=== PATIENT | female | born 2000 | race Two or more races ===

== ENCOUNTER 2024-05-18 07:52 | Outpatient (RCR) | payer MEDICAID, SELFPAY ==
--- NOTE | 2024-05-15 08:56 | XR_ITS ---
Examination: Biophysical profile, ultrasound Date and time of exam: May 15, 2024 0900 hours INDICATIONS: Diagnosis intrauterine growth retardation Technique: Multiple transabdominal sonographic images of the pelvis abdomen obtained. Attention is directed to the breathing movement, gross body movement, amniotic fluid volume and tone. Findings: Amniotic fluid index 12.2 cm Total biophysical profile is 8 of 8. breathing movement is 2. Gross body movement is 2. tone is 2. Qualitative amniotic fluid volume is 2 Impression: Biophysical profile is 8 of 8.
[2024-05-15 09:28] VITALS: BP 118/78; PULSE 83; RESP 18; TEMP 36.7
--- NOTE | 2024-05-18 08:27 | XR_ITS ---
Examination: Biophysical profile, ultrasound Date and time of exam: May 18, 2024 0834 hours INDICATIONS: Diagnosis intrauterine growth retardation, pelvic pressure beginning 3 days ago Technique: Multiple transabdominal sonographic images of the pelvis abdomen obtained. Attention is directed to the breathing movement, gross body movement, amniotic fluid volume and tone. Findings: Amniotic fluid index 13.8 cm Total biophysical profile is 8 of 8. breathing movement is 2. Gross body movement is 2. tone is 2. Qualitative amniotic fluid volume is 2 Impression: Biophysical profile is 8 of 8.
[2024-05-18 09:40] VITALS: BP 115/78; PULSE 81; RESP 16; TEMP 37
== END 2024-05-18 23:59 | disposition home or self-care (01) ==
LOC: S4S1 07:52
PROVIDERS: Referring Provider Advanced Practice Midwife; Visit Provider Advanced Practice Midwife
DX: O26.843 Uterine size-date discrepancy, third trimester (principal); O09.93 Supervision of high risk pregnancy, unspecified, third trimester; O36.5930 Maternal care for other known or suspected poor fetal growth, third trimester, not applicable or unspecified; Z3A.38 38 weeks gestation of pregnancy
CPT/HCPCS: 59025; 76819

== ENCOUNTER 2024-05-21 08:59 | Inpatient (IN) | payer MEDICAID, SELFPAY ==
[2024-05-21] VITALS (27 sets, daily range): BP systolic 90–132; BP diastolic 51–91; PULSE 67–90; RESP 15–17; TEMP 36.5–37; BMI 23.7
[2024-05-21 10:34] LABS: Amphetamine/Metham Scrn,Ur OB Negative (Negative); Benzoylecgonine Screen, Ur OB Negative (Negative); Opiate Screen,Urine OB Negative (Negative); THC Screen,Urine OB Negative (Negative)
--- NOTE | 2024-05-21 10:36 | XR_ITS ---
Examination: Complete OB ultrasound greater than 14 weeks Date and time of exam: May 21, 2024 1110 hrs. Indications: Preop labor induction, unknown presentation, diagnosis intrauterine growth retardation, history pelvic pressure beginning May 17, 2024 Findings: Viable intrauterine single fetus with single amniotic sac presentation cephalic Cardiac motion 143 BPM Placenta anterior grade 3 Clinical: Insertion 3 vessel seen Amniotic fluid index 12.3 cm spine maternal right Cervix 2.9 cm Right ovary 2.9 x 2.9 x 1.7 cm arterial flow Left ovary obscured by bowel gas. Composite estimated gestational age based on BPD, head circumference, abdominal circumference, femur length is 37 weeks 0 days Estimated weight 3107 g. Survey of intracranial anatomy, spinal anatomy, abdominal anatomy, four-chamber heart performed with no abnormalities identified. Impression: Viable intrauterine gestation cephalic presentation Estimated gestational age 37 weeks 0 days Estimated weight 3107 g.
[2024-05-21 10:37] LABS: Basophils % (Auto) 0 % (0-2.5); Eosinophils # (Auto) 0.1 Thou/mm3 (0.0-0.5); Eosinophils % (Auto) 1 % (0-10); Hematocrit 31.4 % (36.0-46.0); Hemoglobin 10.3 g/dL (12.0-16.0); Immature Granulocytes % (Auto) 0 % (0-0); Immature Granulocytes Auto 0.03 Thou/mm3 (0.00-0.00); Lymphocytes % (Auto) 26 % (10-50); Mean Corpuscular HGB Conc 32.8 g/dl (31.0-37.0); Mean Corpuscular Hemoglobin 27.6 pg (25.0-35.0); Mean Corpuscular Volume 84 fL (80-100); Monocytes # (Auto) 0.6 Thou/mm3 (0.0-0.8); Monocytes % (Auto) 8 % (0-12); Neutrophils # (Auto) 5.1 Thou/mm3 (1.8-7.7); Neutrophils % (Auto) 65 % (37-80); Nucleated Red Blood Cell % 0 /100 WBC (0); Platelet Count 147 Thou/mm3 (140-440); RDW Standard Deviation 42.8 fL (36.4-46.3); Red Blood Count 3.73 Miln/mm3 (4.00-5.20); White Blood Count 7.9 Thou/mm3 (3.6-11.0)
[2024-05-21 11:07] LABS: Syphilis Nonreactive (Nonreactive)
[2024-05-21] MEDS: MISOPROSTOL 50 mCg TABLET PO ×3 (13:24→22:46)
--- NOTE | 2024-05-21 14:08 | PD.LDHP ---
Documentation for date of: 05/21/24 OB Labor/Induct. HPI History of Present Illness : 1 History of present illness: 23 yo at 39+2 presents for scheduled IOL for FGR c/b 1) FGR 9%ile (normal UA dopplers?) 2) Anemia in No acute issues. No contractions or LOF. History of Present Adequate Care: No Labs Narrative: Rh postivie HEp bsAg negative GBS negative RPR NR HIV neg GC/CT negative Review of Systems Review of Systems Narrative Review of Systems: NEg except noted above Meds Home Medications and Allergies Allergies Allergy/AdvReac Type Severity Reaction Status Date / Time No Known Allergies Allergy Verified 05/21/24 09:47 OB Exam Physical Exam Vital signs: Temp Pulse Resp BP 98.2 F 77 17 119/78 05/21/24 12:56 05/21/24 13:38 05/21/24 12:56 05/21/24 13:38 Narrative: GEN: NAD RESP normal work of breathing ABD: gravid, non tender SVE: c/l/h OB Results Labs 05/21/24 09:45 Labs: Short CBC 05/21/24 Range/Units 09:45 WBC 7.9 (3.6-11.0) Thou/mm3 Hgb 10.3 L (12.0-16.0) g/dL Hct 31.4 L (36.0-46.0) % Plt Count 147 (140-440) Thou/mm3 OB Assessment & Plan Assessment and Plan (1) growth restriction: Status: Acute (2) Anemia affecting : Status: Acute (3) Supervision of normal : Status: Acute Additional Plan Additional Plan Comment: #IOL for FGR: - continous monitoring - cervical ripening - GBS negative # FWB: EFW 3107 g (9%ile), continous monitoring # anemia in : iron supplementation PPH risk low Anticipate
[2024-05-21] MEDS: RINGERS LACTATED 1000 ML 1,000 ML 100 ML IV (17:55)
[2024-05-22] VITALS (40 sets, daily range): BP systolic 101–148; BP diastolic 59–89; PULSE 65–127; RESP 15–17; TEMP 36.7–37.1; O2SAT 85–100
[2024-05-22] MEDS: MISOPROSTOL 50 mCg TABLET PO ×2 (02:58→13:57)
[2024-05-22] MEDS: OXYTOCIN in NS 30 units 30 UNIT/500 ML BAG IV (19:18)
[2024-05-22] MEDS: fentaNYL CIT INJ 50 mCg/ML AMP 2ML 100 MCG IV ×2 (20:34→22:46)
[2024-05-22] MEDS: RINGERS LACTATED 1000 ML 1,000 ML 100 ML IV (20:51)
[2024-05-23] VITALS (89 sets, daily range): BP systolic 101–148; BP diastolic 55–94; PULSE 74–144; RESP 15–20; TEMP 36.4–37; O2SAT 83–100
[2024-05-23] MEDS: MISOPROSTOL 200 mCg TABLET 800 MCG PR (03:13)
[2024-05-23] MEDS: MINERAL OIL 30 ML UDC TOP (03:13)
[2024-05-23] MEDS: METHYLERGONOVINE INJ 0.2 MG/ML VIAL IM (03:28)
[2024-05-23] MEDS: TRANEXAMIC ACID 1,000 MG IVPB 1,000 MG/100 ML BAG 200 MG IV (03:46)
--- NOTE | 2024-05-23 03:51 | PD.LDDELS ---
Data (Rich) Data : 1 Para: 0 Term: 0 : 0 : 0 Delivery Data (Rich) Labor Data Stimulated/Augmented: Yes Induction: Yes Method: Cytotec ROM Date: 05/22/24 ROM Time: 08:15 Rupture Type: SROM Amniotic Fluid: Clear Delivery Data Labor Onset Stage 1 Date: 05/23/24 Labor Onset Stage 1 Time: 00:15 Labor Onset Stage 2 Date: 05/23/24 Labor Onset Stage 2 Time: 00:15 Delivery Date: 05/23/24 Delivery Time: 03:07 Placenta Delivery Date: 05/23/24 Placenta Delivery Time: 03:17 Delivered by: Carla Garcia Delivery nurse: Mendez Mcgee Other staff at delivery: Nursery Nurse Other staff at delivery: Arminda Martinez Delivery Method Delivery: Vaginal Delivery Type: Spontaneous Presentation: Vertex (posterior arm) Position: OA Anesthesia Type Primary Anesthesia: Epidural Delivery Room Medications Intrapartum Medications: Narcotics and Tocolytics Other Intrapartum Medications: No Post Delivery Medications: Tocolytics, Cytotec and Ergotrate Post Delivery Medications N/A: No Placenta Placenta Delivery: Spontaneous (inspected, intacted) Placenta Cultures Obtained: No Placenta Sent for Examination: No Cord Sample: Cord Blood Obtained Episiotomy Episiotomy: None Lacerations #1: Vaginal: 1st degree (on vag floor and R side, 3 stitch each, small PU) Perineal repair Sutures used for repair: 3.0 Chromic EBL Estimated blood loss (ml): 400 Umbilical Cord Umbilical Vessels: 3 Body Cord: x1 (feet) Data (Rich) Data Infant Gender: Female Infant Weight Grams: 2575 1 Minute Total: 9 5 Minute Total: 9
[2024-05-23] MEDS: OXYTOCIN in NS 20 units 20 UNIT/1,000 ML BAG 125 UNIT IV (03:59)
[2024-05-23] MEDS: BENZO/LANO/ALOE (Dermoplast) 60 GM CAN 1 SPRAY TOP (04:01)
[2024-05-23] MEDS: IBUPROFEN TAB 400 MG TABLET 800 MG PO (04:01)
[2024-05-23 12:16] LABS: Basophils % (Auto) 0 % (0-2.5); Eosinophils % (Auto) 0 % (0-10); Hematocrit 26.8 % (36.0-46.0); Immature Granulocytes % (Auto) 1 % (0-0); Immature Granulocytes Auto 0.11 Thou/mm3 (0.00-0.00); Lymphocytes # (Auto) 2.2 Thou/mm3 (1.0-4.8); Lymphocytes % (Auto) 13 % (10-50); Mean Corpuscular HGB Conc 32.5 g/dl (31.0-37.0); Mean Corpuscular Hemoglobin 27.3 pg (25.0-35.0); Mean Corpuscular Volume 84 fL (80-100); Monocytes # (Auto) 1.2 Thou/mm3 (0.0-0.8); Monocytes % (Auto) 7 % (0-12); Neutrophils # (Auto) 13.8 Thou/mm3 (1.8-7.7); Neutrophils % (Auto) 80 % (37-80); Nucleated Red Blood Cell % 0 /100 WBC (0); Platelet Count 136 Thou/mm3 (140-440); RDW Standard Deviation 43.1 fL (36.4-46.3); Red Blood Count 3.19 Miln/mm3 (4.00-5.20); White Blood Count 17.3 Thou/mm3 (3.6-11.0)
[2024-05-23 12:20] LABS: Hemoglobin 8.7 g/dL (12.0-16.0)
[2024-05-23] MEDS: ACETAMINOPHEN 325 MG TABLET 650 MG PO (23:28)
--- NOTE | 2024-05-24 08:34 | ESDS_ITS ---
DS: Providers Provider Date of admission: 05/21/24 08:59 Primary care physician: Physician No Primary/Family Admitting Provider: Melita Iraheta MD Attending Provider on Admission: Aida Frazier MD Consults: 05/23/24 05:30 Referral Routine Comment: Attending Provider on DC: Kim Phan MD Discharging Provider: Kim Phan MD DS: Diagnosis Discharge Diagnosis (1) Anemia affecting : Status: Acute (2) growth restriction: Status: Acute Problem List Completed Was Problem List Reviewed/Reconciled?: Yes Summary/Hosp Course Brief History: 23 yo at 39+2 presents for scheduled IOL for FGR c/b 1) FGR 9%ile (normal UA dopplers?) 2) Anemia in Patient had uncomplicated IOL and spontaneous vaginal delivery with normal course. On day 1 she desires discharge home and is meeting all milestones. Vitals wnl, benign exam. Hemodynamically stable with no evidence of infection. Hgb now 8.7 from 10.3, Rx for iron sent and discussed with patient how to take. Peripartum Data Delivery Method: Normal Vaginal Delivery Episiotomy Description: None Laceration Description: yes complications: perineal laceration Status at Discharge Functional status at discharge: independent ambulation Overall status at discharge: patient is back to baseline Time Spent with Patient Time attestation: Total time spent providing and/or coordinating discharge services: Time spent: Less than 30 minutes Exam Vital Signs Temp Pulse Resp BP Pulse Ox O2 Del Method 98.3 F 85 18 102/64 99 Room Air 05/23/24 23:25 05/23/24 23:25 05/23/24 23:25 05/23/24 23:25 05/23/24 23:25 05/23/24 23:25 Narrative Exam General: well developed, well nourished, no acute distress, conversant Cardiac: normal heart rate Lungs: breathing without distress Abdomen: soft, post-gravid, non-tender, no rebound or guarding Extremities: no pain with palpation of calves Discharge Plan Plan Patient Disposition: HOME (Self Care) Patient condition on transfer: Stable Prescriptions/Referrals Prescriptions/Med Rec: New ibuprofen 400 mg Tablet 800 mg PO Q8H PRN (Reason: See Comments) 10 Days Qty: 30 0RF docusate sodium [Colace] 100 mg capsule 100 mg PO BID Qty: 30 0RF ferrous sulfate 325 mg (65 mg iron) tablet 325 mg PO QDAY Qty: 90 0RF Referrals: No Primary/Family,Physician [Primary Care Provider] - Patient/Caregiver Discharge Instructions Discharge Activity: activity as tolerated and other Other Discharge Activity Instructions:: Vaginal rest and no heavy lifting for 6 weeks Other Discharge Diet Instructions: regular diet Education Materials: After a Vaginal , Anemia During Print Language: Latvian Stand Alone Forms: Rere Award Info., Patient Portal Info Letter Discharge Order Discharge Orders: Discharge (Routine); Ordered 05/24/24 Ordered By: Kim Phan Planned Discharge Date 05/24/24 (1) Anemia affecting Qualifiers: Trimester: unspecified trimester Qualified Code(s): O99.019 - Anemia complicating , unspecified trimester
[2024-05-24 09:00] VITALS: BP 111/72; PULSE 83; RESP 17; TEMP 36.8; O2SAT 98
--- NOTE | 2024-05-24 14:26 | PC.SS ---
Patient is Pashto speaking only. Interpreting line utilized. Patient agreeable to speaking in front of father of the baby. FOB is Jc Castellanos. LEGISLATIVE ANALYST and SS discussed referral for late to care. Patient was late to care at 29 weeks. Patient states she received care in [place] where she was residing at the time. Baby born naturally. This is patient?s first child. Patient had a baby girl. No hx: mental illness, drug/alcohol history, domestic violence, nor CWS involvement. Patient verbalized he has WIC but does not have food stamps or gamez aid. Patient expressed she would like information on how to apply for the two. Resources provided. Patient has an OB physician she sees, senior brand manager, Carla Garcia RN. Patient has found a groundskeeping yardman for baby. Patient has all resources for car seat, baby clothing. She has positive family support. FOB involved and resides with patient. He will be providing transportation home. SS provided resources to include SNAP/TANF information. SS updated nursing staff. Possible d/c home today.
== END 2024-05-24 13:18 | disposition home or self-care (01) | DRG 560 ==
LOC: S4SX 05-22 22:38 → S4NX 05-23 05:06
PROVIDERS: Advanced Practice Midwife; Admitting Provider Obstetrics & Gynecology; Visit Provider Student in an Organized Health Care Education/Training Program
DX: O36.5930 Maternal care for other known or suspected poor fetal growth, third trimester, not applicable or unspecified (principal); Z37.0 Single live birth; Z3A.39 39 weeks gestation of pregnancy; O69.82X0 Labor and delivery complicated by other cord entanglement, without compression, not applicable or unspecified; O99.02 Anemia complicating childbirth; O70.0 First degree perineal laceration during delivery
CPT/HCPCS: 36415; 59409; 76805; 80307; 85025; 86780; 86850; 86900; 86901; 94762; J2210; J2590; J2795; J3010; J3490; J7120; S0191; A9270

== ENCOUNTER 2024-10-20 17:31 | Inpatient (IN) | payer MEDICAID, SELFPAY ==
[2024-10-20 17:58] VITALS: BP 104/65; PULSE 112; RESP 18; TEMP 37.3; O2SAT 97; BMI 22.9
--- NOTE | 2024-10-20 18:16 | XR_ITS ---
Examination: CT abdomen and pelvis without contrast. Coronal 3-D reconstructions. Sagittal 2-D reconstructions. Date and time of exam:October 21, 2024 0012 hours INDICATIONS: Right lower abdominal pain today CTDI: vol (mGy): 24 DLP: (mGycm): 235 Technique: Axial images of the abdomen have been obtained, 3 mm slice thickness Intravenous contrast material has not been administered. Low dose protocols were performed. One or more of the following dose reduction techniques were used; automated exposure control, adjustment of the mA and/or KV according to patient size, use of iterative reconstruction technique. Findings: No focal liver or splenic lesions No gallstones No pancreatic or adrenal mass No renal or ureteral calculi, no hydronephrosis Retroverted uterus There appears to be a thickened tubular structure medial to the cecum coronal image 56 but there is no pericecal inflammatory change and there is no clear-cut periappendiceal inflammatory change Minimal urinary bladder wall thickening Orthopedic plate right in the pelvis and old healed right hip fracture IMPRESSION: Recommend repeating this study with contrast to exclude acute appendicitis
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
[2024-10-20 19:01] LABS: Collection Type, Urine Clean Catch
[2024-10-20 19:09] LABS: HCG Qualitative,Urine Negative
[2024-10-20 19:11] LABS: Bilirubin,Urine Negative (Negative); Blood,Urine Negative (Negative); Clarity,Urine Turbid (Clear/Hazy); Color,Urine Yellow (Lt Yel-Yel); Culture Indicated,Urine Not Indicated; Glucose, Urine Negative (Negative); Ketones,Urine Negative (Negative); Leukocyte Esterase,Urine Negative (Negative); Nitrite,Urine Negative (Negative); PH,Urine 5.5 (5.0-7.0); Protein,Urine Trace (Neg - Trace); RBC,Urine 5 /hpf (0-3); Specific Gravity,Urine 1.025 (1.001-1.035); Squamous Epithelial Cell,Urine 5 /hpf (0-5); Urobilinogen,Urine Negative mg/dL (0.0-1.0); WBC,Urine 2 /hpf (0-5)
[2024-10-20 19:12] LABS: Amorphous Crystals,Urine Present (Absent); Bacteria,Urine Rare
--- NOTE | 2024-10-20 21:00 | PC.NURSE ---
attempted iv 3x no success
[2024-10-20 21:08] LABS: Basophils % (Auto) 0 % (0-2.5); Eosinophils % (Auto) 0 % (0-10); Hematocrit 37.7 % (36.0-46.0); Immature Granulocytes % (Auto) 0 % (0-0); Immature Granulocytes Auto 0.06 Thou/mm3 (0.00-0.00); Lymphocytes # (Auto) 1.3 Thou/mm3 (1.0-4.8); Lymphocytes % (Auto) 8 % (10-50); Mean Corpuscular HGB Conc 34.5 g/dl (31.0-37.0); Mean Corpuscular Volume 87 fL (80-100); Monocytes # (Auto) 0.9 Thou/mm3 (0.0-0.8); Monocytes % (Auto) 5 % (0-12); Neutrophils # (Auto) 14.7 Thou/mm3 (1.8-7.7); Neutrophils % (Auto) 86 % (37-80); Nucleated Red Blood Cell % 0 /100 WBC (0); Platelet Count 199 Thou/mm3 (140-440); RDW Standard Deviation 54.3 fL (36.4-46.3); Red Blood Count 4.34 Miln/mm3 (4.00-5.20)
[2024-10-20 21:41] LABS: Alanine Aminotransferase 21 U/L (10-49); Albumin/Globulin Ratio 1.6 (1.2-2.2); Alkaline Phosphatase 236 U/L (46-116); Anion Gap 13 (7-16); Aspartate Amino Transferase 25 U/L (0-34); BUN/Creatinine Ratio 13 Ratio (12-20); Bilirubin,Total 1.1 mg/dL (0.3-1.2); Blood Urea Nitrogen 8 mg/dL (9-23); Carbon Dioxide 19.8 mMol/L (20.0-31.0); Chloride 103 mMol/L (98-107); Creatinine (Component) 0.6 mg/dL (0.6-1.3); Estimated Creatinine Clearance 137.7 mL/min (>60); Globulin 3.1 gm/dL (2.3-3.5); Glucose 109 mg/dL (74-106); Osmolality,Calculated 271 (275-295); Potassium 3.9 mMol/L (3.4-5.1); Sodium 136 mMol/L (136-145); Total Protein 8.1 gm/dL (5.7-8.2); eGFR > 60 See Note
[2024-10-20 22:23] LABS: Partial Thromboplastin Time 29.3 Seconds (22.0-36.0)
--- NOTE | 2024-10-20 23:05 | PC.NURSE ---
attempt iv access x3 unable to get at this time
[2024-10-20 23:13] VITALS: BP 122/82; PULSE 91; RESP 16; TEMP 36.9; O2SAT 100
[2024-10-20 23:14] VITALS: PULSE 84
[2024-10-21] VITALS (11 sets, daily range): BP systolic 94–121; BP diastolic 53–74; PULSE 67–91; RESP 15–99; TEMP 36.2–37.2; O2SAT 98–100
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
--- NOTE | 2024-10-21 00:32 | PC.NURSE ---
unable to obtain iv access provider made aware, multiple staff attempted.
[2024-10-21] MEDS: RINGERS LACTATED 1000 ML 1,000 ML 999 ML IV ×2 (01:54→05:45)
--- NOTE | 2024-10-21 02:02 | PRELIM_ITS ---
CT scan of the abdomen and pelvis without intravenous contrast (axial sections with sagittal and coronal reformats) October 21, 2024 at 0012 hours Clinical History: Right lower quadrant pain Comparison: No prior study is available for comparison. Findings: The evaluation is limited due to the absence of intravenous contrast. The appendix is thickened, measuring 1 cm (coronal images 50-58/134) with periappendiceal fat stranding. There is no free fluid or free air. No evidence of bowel obstruction. The liver, gallbladder, spleen, pancreas, adrenals and kidneys are unremarkable on this noncontrast study. The urinary bladder is incompletely distended at the time of the examination and appears mildly thick walled. The uterus and adnexa are unremarkable. There are age indeterminate fractures of the superior and inferior pubic rami bilaterally. There are age indeterminate fractures of the right transverse processes of L1, L2, L3 and L5 vertebrae. Orthopedic fixation for age indeterminate fractures in right femur, right iliac bone and sacroiliac joint is noted. The lung bases are clear. Impression: 1. Limited evaluation due to the absence of intravenous contrast. 2. Acute appendicitis without free air or abscess. 3. Possibility of cystitis. 4. Age indeterminate fractures of the superior and inferior pubic rami bilaterally. Age indeterminate fractures of the right transverse processes of L1, L2, L3 and L5 vertebrae. Orthopedic fixation for age indeterminate fractures in right femur, right iliac bone and sacroiliac joint. Discussion Details: Results verbally communicated to : Dr. Dubose at 01:58 AM 10/21/2024 Report Electronically Signed By: Princess Scott 10/21/2024 2:01:55 AM [EST]
[2024-10-21] MEDS: ONDANSETRON INJ 2 MG/ML INJ 2 ML 4 MG IVP (02:22)
[2024-10-21] MEDS: MORPHINE SULF INJ 10 MG/ML VIAL 5 MG IVP (02:23)
[2024-10-21] MEDS: PIPER/TAZO 3.375 GM PREMIX 3.375 GM/50 ML BAG IV (02:26)
--- NOTE | 2024-10-21 05:01 | XR_ITS ---
Examination: CT abdomen with intravenous contrast CT pelvis with intravenous contrast 2-D coronal reconstructions 2-D sagittal reconstructions Date and time of exam:October 21, 2024 0707 hours INDICATIONS: Right lower abdominal pain this week. CTDI: vol (mGy) 15 DLP: (mGycm) 797 Technique: Multiple axial sections of the abdomen and pelvis have been obtained. 64 slice high-resolution scanner used. 3 mm axial sections have been obtained, post intravenous injection 60 cc [id number] 2-D sagittal, coronal reconstructions obtained. Low dose protocols were performed. One or more of the following dose reduction techniques were used; automated exposure control, adjustment of the mA and/or KV according to patient size, use of iterative reconstruction technique. Findings: No focal liver or splenic lesions Possible tiny gallstone No pancreatic mass No renal or ureteral calculi, no hydronephrosis Aorta normal size The appendix is thickened, 7 mm and fluid-filled There is possible minimal periappendiceal inflammatory change There is no significant pericecal inflammatory change No abscess Involuting left ovarian follicular cyst 16 mm Minimal thickening of the urinary bladder wall IMPRESSION: The appendix is thickened, 7 mm and fluid-filled There is possible minimal periappendiceal inflammatory change There is no significant pericecal inflammatory change Recommend clinical assessment and correlation with the above findings and follow-up imaging as clinically warranted
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
[2024-10-21] MEDS: cefTRIAXone/D5w 1gm IV premix 1 GM/50 ML BAG IV (10:31)
[2024-10-21] MEDS: metroNIDAZOLE/NS 500 MG IVPB 500 MG/100 ML BAG 200 MG IV ×3 (10:37→21:20)
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
[2024-10-21] MEDS: SODIUM CHLORIDE 0.9% 1000 ML 1,000 ML 75 ML IV (14:03)
[2024-10-21] MEDS: HEPARIN SOD INJ 5000 UNIT/ML VIAL SC (21:20)
[2024-10-22] VITALS (9 sets, daily range): BP systolic 90–112; BP diastolic 55–73; PULSE 66–78; RESP 16–99; TEMP 36.3–37.2; O2SAT 97–99
[2024-10-22] MEDS: SODIUM CHLORIDE 0.9% 1000 ML 1,000 ML 75 ML IV (03:47)
[2024-10-22] MEDS: metroNIDAZOLE/NS 500 MG IVPB 500 MG/100 ML BAG 200 MG IV ×3 (05:30→22:47)
[2024-10-22 05:40] LABS: Basophils % (Auto) 1 % (0-2.5); Eosinophils # (Auto) 0.2 Thou/mm3 (0.0-0.5); Eosinophils % (Auto) 3 % (0-10); Hematocrit 31.6 % (36.0-46.0); Hemoglobin 10.6 g/dL (12.0-16.0); Immature Granulocytes % (Auto) 0 % (0-0); Immature Granulocytes Auto 0.02 Thou/mm3 (0.00-0.00); Lymphocytes # (Auto) 1.7 Thou/mm3 (1.0-4.8); Lymphocytes % (Auto) 26 % (10-50); Mean Corpuscular HGB Conc 33.5 g/dl (31.0-37.0); Mean Corpuscular Hemoglobin 29.6 pg (25.0-35.0); Mean Corpuscular Volume 88 fL (80-100); Monocytes # (Auto) 0.7 Thou/mm3 (0.0-0.8); Monocytes % (Auto) 10 % (0-12); Neutrophils # (Auto) 3.9 Thou/mm3 (1.8-7.7); Neutrophils % (Auto) 60 % (37-80); Nucleated Red Blood Cell % 0 /100 WBC (0); Platelet Count 163 Thou/mm3 (140-440); RDW Standard Deviation 54.8 fL (36.4-46.3); Red Blood Count 3.58 Miln/mm3 (4.00-5.20); White Blood Count 6.5 Thou/mm3 (3.6-11.0)
[2024-10-22 05:52] LABS: Alanine Aminotransferase 15 U/L (10-49); Albumin, Serum 3.8 gm/dL (3.5-5.0); Albumin/Globulin Ratio 1.7 (1.2-2.2); Alkaline Phosphatase 168 U/L (46-116); Anion Gap 11 (7-16); Aspartate Amino Transferase 22 U/L (0-34); BUN/Creatinine Ratio 12 Ratio (12-20); Bilirubin,Total 0.8 mg/dL (0.3-1.2); Blood Urea Nitrogen 6 mg/dL (9-23); Calcium 9.1 mg/dL (8.3-10.6); Calcium (Corrected) 9.3 mg/dL (8.5-10.1); Carbon Dioxide 20.4 mMol/L (20.0-31.0); Chloride 107 mMol/L (98-107); Creatinine (Component) 0.5 mg/dL (0.6-1.3); Estimated Creatinine Clearance 165.2 mL/min (>60); Globulin 2.2 gm/dL (2.3-3.5); Glucose 73 mg/dL (74-106); Osmolality,Calculated 272 (275-295); Potassium 3.4 mMol/L (3.4-5.1); Sodium 138 mMol/L (136-145); eGFR > 60 See Note
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
[2024-10-22] MEDS: KETOROLAC INJ 30 MG/ML VIAL 15 MG IVP ×2 (07:50→22:15)
[2024-10-22] MEDS: cefTRIAXone/D5w 1gm IV premix 1 GM/50 ML BAG IV ×2 (08:27→21:59)
[2024-10-22] MEDS: HEPARIN SOD INJ 5000 UNIT/ML VIAL SC ×2 (08:27→21:59)
[2024-10-22] MEDS: ONDANSETRON INJ 2 MG/ML INJ 2 ML 4 MG IVP (11:39)
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
[2024-10-23] VITALS: BP 105/65; PULSE 74; RESP 18; TEMP 36.8; O2SAT 95
[2024-10-23 04:00] VITALS: BP 109/76; PULSE 68; RESP 18; TEMP 36.6; O2SAT 95
[2024-10-23] MEDS: metroNIDAZOLE/NS 500 MG IVPB 500 MG/100 ML BAG 200 MG IV (05:27)
[2024-10-23 05:58] LABS: Basophils % (Auto) 0 % (0-2.5); Eosinophils # (Auto) 0.3 Thou/mm3 (0.0-0.5); Eosinophils % (Auto) 5 % (0-10); Hematocrit 31.7 % (36.0-46.0); Hemoglobin 10.6 g/dL (12.0-16.0); Immature Granulocytes % (Auto) 0 % (0-0); Immature Granulocytes Auto 0.01 Thou/mm3 (0.00-0.00); Lymphocytes # (Auto) 2.3 Thou/mm3 (1.0-4.8); Lymphocytes % (Auto) 43 % (10-50); Mean Corpuscular HGB Conc 33.4 g/dl (31.0-37.0); Mean Corpuscular Volume 90 fL (80-100); Monocytes # (Auto) 0.6 Thou/mm3 (0.0-0.8); Monocytes % (Auto) 12 % (0-12); Neutrophils # (Auto) 2.1 Thou/mm3 (1.8-7.7); Neutrophils % (Auto) 40 % (37-80); Nucleated Red Blood Cell % 0 /100 WBC (0); Platelet Count 182 Thou/mm3 (140-440); RDW Standard Deviation 54.2 fL (36.4-46.3); Red Blood Count 3.53 Miln/mm3 (4.00-5.20); White Blood Count 5.4 Thou/mm3 (3.6-11.0)
[2024-10-23 06:21] LABS: Alanine Aminotransferase 18 U/L (10-49); Albumin, Serum 3.6 gm/dL (3.5-5.0); Albumin/Globulin Ratio 1.5 (1.2-2.2); Alkaline Phosphatase 169 U/L (46-116); Anion Gap 12 (7-16); Aspartate Amino Transferase 27 U/L (0-34); BUN/Creatinine Ratio 13 Ratio (12-20); Bilirubin,Total 0.5 mg/dL (0.3-1.2); Blood Urea Nitrogen < 5 mg/dL (9-23); Calcium 8.9 mg/dL (8.3-10.6); Calcium (Corrected) 9.2 mg/dL (8.5-10.1); Carbon Dioxide 23.3 mMol/L (20.0-31.0); Chloride 106 mMol/L (98-107); Creatinine (Component) 0.4 mg/dL (0.6-1.3); Globulin 2.4 gm/dL (2.3-3.5); Glucose 81 mg/dL (74-106); Osmolality,Calculated 277 (275-295); Potassium 3.2 mMol/L (3.4-5.1); Sodium 141 mMol/L (136-145); eGFR > 60 See Note
[2024-10-23 07:33] VITALS: PULSE 78; RESP 18; RESP 99
[2024-10-23 08:00] VITALS: BP 96/54; PULSE 61; RESP 17; TEMP 36.3; O2SAT 96
[2024-10-23] MEDS: POTASSIUM CHLORIDE 20 mEq TABCR 40 MEQ PO (08:42)
[2024-10-23] MEDS: cefTRIAXone/D5w 1gm IV premix 1 GM/50 ML BAG IV (08:42)
[2024-10-23] MEDS: HEPARIN SOD INJ 5000 UNIT/ML VIAL SC (08:42)
--- NOTE | 2024-10-23 09:36 | PC.SS ---
Follow up note: Advance diet as tolerated. No surgery. On IV antibiotic.
--- NOTE | 2024-10-23 10:48 | PC.NURSE ---
Discharged ordered noted. No disposition. Called Dr. Cooper states she is finishing discharge as we speak.
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
== END 2024-10-23 11:23 | disposition home or self-care (01) | DRG 254 ==
LOC: SERX 10-21 06:05 → SERHOLD 10-21 10:20 → S3SX 10-21 13:32
PROVIDERS: Nurse Practitioner Family; Student in an Organized Health Care Education/Training Program; Surgery; Admitting Provider Internal Medicine; Emergency Provider Emergency Medicine; Visit Provider Internal Medicine
DX: K35.80 Unspecified acute appendicitis (principal); Z79.82 Long term (current) use of aspirin; Z79.899 Other long term (current) drug therapy; Z86.16 Personal history of COVID-19
CPT/HCPCS: 36415; 74176; 74177; 80053; 81001; 81025; 85025; 85730; 87081; 96361; 96365; 96367; 96368; 96375; 99291; A4649; J0696; J1644; J1885; J2270; J2405; J2543; J3490; J7030; J7120; Q9967; A9270; J1836

== ENCOUNTER → 2024-11-09 | Outpatient (CLI) | payer MEDICAID, SELFPAY ==
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
== END | disposition home or self-care (01) ==
PROVIDERS: Referring Provider Orthopaedic Surgery; Visit Provider Orthopaedic Surgery
DX: S32.511A Fracture of superior rim of right pubis, initial encounter for closed fracture (principal); S42.021A Displaced fracture of shaft of right clavicle, initial encounter for closed fracture; S72.351A Displaced comminuted fracture of shaft of right femur, initial encounter for closed fracture; S42.301A Unspecified fracture of shaft of humerus, right arm, initial encounter for closed fracture; V89.2XXA Person injured in unspecified motor-vehicle accident, traffic, initial encounter
CPT/HCPCS: 72170; 73000; 73060; 73552